=== PATIENT | male | born 1960 | race Caucasian/White ===

== ENCOUNTER 2016-12-01 17:51 | Emergency (ER) | payer SELFPAY ==
[~2016-12-01] VITALS: Ht 177.8 cm; Wt 74.8 kg
[~2016-12-01 17:51] MED LIST: SULF1TAB24 PO
[2016-12-01 18:08] VITALS: BP 132/69
[2016-12-01] MEDS ORDERED: fentaNYL PF VIAL 100 MCG/2 ML VIAL IV ONE (18:30)
[2016-12-01] MEDS ORDERED: ONDANSETRON PF 4 MG/2 ML VIAL. IV ONE (18:30)
--- NOTE | 2016-12-01 18:32 | PHYS DOC ---
Past Medical History Past Medical History: No Pertinent History Past Surgical History: Appendectomy, Other Additional Past Surgical Histo: R rotator cuff Smokin Pack Per Day Alcohol Use: Occasionally Drug Use: None Social History Narrative: reports previous history of cocaine abuse Adult General Chief Complaint Chief Complaint: OTHER COMPLAINTS [facility] Patient is a 56 year old male presents to the emergency department with complaints of pain and swelling in the right groin area. He states it's been present for many months and seems to worsen when he is working or doing any kind of physical labor. He states that it has been more persistent and seems to be swollen. He states it does resolve when he quits doing heavy work and puts pressure on it. Patient states he has no associated nausea, diarrhea. He reports no constipation. He reports no fever. Review of Systems Review of Systems Constitutional: Denies fever or chills [] Eyes: Denies change in visual acuity, redness, or eye pain [] HENT: Denies nasal congestion or sore throat [] Respiratory: Denies cough or shortness of breath [] Cardiovascular: No additional information not addressed in HPI [] GI: Right inguinal pain without nausea, vomiting, diarrhea or bloody stools. : Denies dysuria or hematuria [] Musculoskeletal: Denies back pain or joint pain [] Integument: Denies rash or skin lesions [] Neurologic: Denies headache, focal weakness or sensory changes [] Endocrine: Denies polyuria or polydipsia [] Current Medications Current Medications Current Medications Medications (Trade) Dose Ordered Sig/Shaka Start Time Stop Time Status Last Admin Dose Admin Fentanyl Citrate (Fentanyl 2ml Vial) 50 mcg 1X ONCE 12/01/16 18:30 12/01/16 18:31 DC 12/01/16 19:58 50 MCG Info (Do NOT chart on this entry -- for MONITORING) 1 each PRN DAILY PRN 12/01/16 20:15 12/03/16 20:14 Iohexol (Omnipaque 300 Mg/ml) 75 ml 1X ONCE 12/01/16 20:15 12/01/16 20:16 DC 12/01/16 20:21 75 ML Ondansetron HCl (Zofran) 4 mg 1X ONCE 12/01/16 18:30 12/01/16 18:31 DC 12/01/16 19:57 4 MG Allergies Allergies Allergies Coded Allergies Type Severity Reaction Last Updated Verified No Known Drug Allergies 09/02/13 No Physical Exam Physical Exam Constitutional: Well developed, well nourished, no acute distress, non-toxic appearance. [] HENT: Normocephalic, atraumatic, bilateral external ears normal, oropharynx moist, no oral exudates, nose normal. [] Eyes: PERRLA, EOMI, conjunctiva normal, no discharge. [] Neck: Normal range of motion, no tenderness, supple, no stridor. [] Cardiovascular:Heart rate regular rhythm, no murmur [] Lungs & Thorax: Bilateral breath sounds clear to auscultation [] Abdomen: Bowel sounds normal, soft, slight bulge in the right inguinal area, easily reduced, palpable inguinal hernia : External genitalia within normal limits, testicular exam unremarkable] Skin: Warm, dry, no erythema, no rash. [] Back: No tenderness, no CVA tenderness. [] Extremities: No tenderness, no cyanosis, no clubbing, ROM intact, no edema. [] Neurologic: Alert and oriented X 3, normal motor function, normal sensory function, no focal deficits noted. [] Psychologic: Affect normal, judgement normal, mood normal. [] Current Patient Data Vital Signs Vital Signs Date Time Temp Pulse Resp B/P (MAP) Pulse Ox O2 Delivery O2 Flow Rate FiO2 12/01/16 19:58 16 94 Room Air 12/01/16 18:08 98.4 71 132/69 (90) 98.4 Lab Values Laboratory Tests Test 12/01/16 18:25 12/01/16 19:35 Urine Collection Type Void Urine Color Yellow Urine Clarity Clear Urine pH 6.5 Urine Specific [place] 1.025 Urine Protein Negative mg/dL (NEG-TRACE) Urine Glucose (UA) Negative mg/dL (NEG) Urine Ketones (Stick) Negative mg/dL (NEG) Urine Blood Negative (NEG) Urine Nitrite Negative (NEG) Urine Bilirubin Negative (NEG) Urine Urobilinogen Dipstick 0.2 mg/dL (0.2 mg/dL) Urine Leukocyte Esterase Negative (NEG) Urine RBC 0 /HPF (0-2) Urine WBC 1-4 /HPF (0-4) Urine Squamous Epithelial Cells Few /LPF Urine Amorphous Sediment Present /HPF Urine Bacteria Few /HPF (0-FEW) Urine Mucus Mod /LPF Urine Opiates Screen Pos (NEG) Urine Methadone Screen Neg (NEG) Urine Barbiturates Neg (NEG) Urine Phencyclidine Screen Neg (NEG) Urine Amphetamine/Methamphetamine Neg (NEG) Urine Benzodiazepines Screen Neg (NEG) Urine Cocaine Screen Pos (NEG) Urine Cannabinoids Screen Neg (NEG) Urine Ethyl Alcohol Neg (NEG) White Blood Count 12.6 x10^3/uL (4.0-11.0) H Red Blood Count 4.87 x10^6/uL (4.30-5.70) Hemoglobin 14.2 g/dL (13.0-17.5) Hematocrit 42.0 % (39.0-53.0) Mean Corpuscular Volume 86 fL (79-100) Mean Corpuscular Hemoglobin 29 pg (25-35) Mean Corpuscular Hemoglobin Concent 34 g/dL (31-37) Red Cell Distribution Width 13.6 % (11.5-14.5) Platelet Count 277 x10^3/uL (140-400) Neutrophils (%) (Auto) 72 % (31-73) Lymphocytes (%) (Auto) 15 % (24-48) L Monocytes (%) (Auto) 10 % (0-9) H Eosinophils (%) (Auto) 2 % (0-3) Basophils (%) (Auto) 1 % (0-3) Neutrophils # (Auto) 9.0 x10^3uL (1.8-7.7) H Lymphocytes # (Auto) 1.9 x10^3/uL (1.0-4.8) Monocytes # (Auto) 1.2 x10^3/uL (0.0-1.1) H Eosinophils # (Auto) 0.3 x10^3/uL (0.0-0.7) Basophils # (Auto) 0.1 x10^3/uL (0.0-0.2) Sodium Level 135 mmol/L (136-145) L Potassium Level 4.0 mmol/L (3.5-5.1) Chloride Level 99 mmol/L (98-107) Carbon Dioxide Level 30 mmol/L (21-32) Anion Gap 6 (6-14) Blood Urea Nitrogen 17 mg/dL (8-26) Creatinine 0.7 mg/dL (0.7-1.3) Estimated GFR (Cockcroft-Gault) 116.7 BUN/Creatinine Ratio 24 (6-20) H Glucose Level 81 mg/dL (70-99) Calcium Level 9.2 mg/dL (8.5-10.1) Total Bilirubin 0.6 mg/dL (0.2-1.0) Aspartate Amino Transferase (AST) 28 U/L (15-37) Alanine Aminotransferase (ALT) 44 U/L (16-63) Alkaline Phosphatase 83 U/L (46-116) Total Protein 7.9 g/dL (6.4-8.2) Albumin 3.6 g/dL (3.4-5.0) Albumin/Globulin Ratio 0.8 (1.0-1.7) L Laboratory Tests 12/01/16 19:35 Laboratory Tests 12/01/16 19:35 EKG EKG [] Radiology/Procedures Radiology/Procedures [][facility] [address] [place] [address] IMAGING REPORT Signed PATIENT: ALOK DELEON ACCOUNT: [id number] : 1960 LOCATION: ER AGE: 56 SEX: M EXAM STATUS: REG ER ORD. PHYSICIAN: JESSICA MCKEON APRN REASON: RLQ pain, inguinal hernia PROCEDURE: CT ABD PELV W/ IV CONTRST ONLY CT scan of the abdomen and pelvis with contrast 12/01/2016 CLINICAL HISTORY: Right lower quadrant abdominal pain. TECHNIQUE: After the intravenous administration of 75 cc of Omnipaque 300 only, contiguous, 5 mm axial sections were obtained through the abdomen and pelvis. One or more of the following individualized dose reduction techniques were utilized for this study: 1. Automated exposure control. 2. Adjustment of the mA and/or kV according to patient size. 3. Use of iterative reconstruction technique. FINDINGS: Images through the lung bases demonstrate dependent subsegmental atelectasis involving both lower lobes. A 5 mm calcified granuloma is seen involving the left lower lobe. Right middle lobe atelectasis and/ or infiltrate is noted. The liver, spleen, pancreas, adrenal glands and the right kidney are within normal limits. A 1 to 2 mm nonobstructing calculus is seen involving thelower pole of the left kidney. Moderate atherosclerotic calcification abdominal aorta is seen. The abdominal aorta tapers normally. The gallbladder is well-distended. No free fluid or free air within the abdomen. The bowel is difficult to evaluate without oral contrast material. Mild to small bowel loops are seen within the mid/lower abdomen without definite evidence of bowel obstruction. A small umbilical hernia is seen which contains fat. It measures 1.6 cm in size. The appendix is not visualized. No inflammatory changes are seen surrounding the cecum. Images through the pelvis demonstrate the urinary bladder distended with urine. Calcifications are seen within the pelvis consistent with phleboliths. No free fluid is seen. There is a small fat-containing right inguinal hernia. This measures 2.2 cm diameter. Degenerative changes are seen involving the lower thoracic and throughout the lumbar spine and both hips. IMPRESSION: 1. Small umbilical and right inguinal hernias which contain fat. 2. No acute abnormality is seen. Electronically signed by: Suresh Melara MD (12/01/2016 9:01 PM) [facility] DICTATED and SIGNED BY: SURESH MELARA MD DATE: 12/01/162050 CC: NO PCP; NON,STAFF; JESSICA MCKEON APRN ~ Course & Med Decision Making Course & Med Decision Making Pertinent Labs and Imaging studies reviewed. (See chart for details) []Patient is a 50 mg of fentanyl IV. During the initial interview, he had difficulty maintaining an awake state and had slurred speech. At that time he denied use of alcohol or illicit drugs. His drug screen is positive for opiates and cocaine. Patient's hernias are not incarcerated. He will be discharged home for plan follow-up outpatient surgery. Dragon Disclaimer Dragon Disclaimer This electronic medical record was generated, in whole or in part, using a voice recognition dictation system. Departure Departure Impression: Primary Impression: Inguinal hernia Disposition: HOME, SELF-CARE Condition: STABLE Referrals: NO PCP (PCP) [facility] Patient Instructions: Inguinal Hernia, Adult Scripts Naproxen (NAPROSYN) 500 Mg Tablet 500 MG PO BID Y for PAIN, #20 TAB Prov: JESSICA MCKEON APRN 12/01/16 Problem Qualifiers Primary Impression: Inguinal hernia Obstruction and gangrene presence: without obstruction or gangrene Laterality : unilateral Recurrence: recurrent Qualified Codes: K40.91 - Unilateral inguinal hernia, without obstruction or gangrene, recurrent JESSICA MCKEON [employer] Dec 01, 2016 18:32
[2016-12-01 18:41] LABS: BILIRUBIN,URINE NEGATIVE (NEG); GLUCOSE,URINE NEGATIVE (NEG); NITRITE,URINE NEGATIVE (NEG); PH,URINE 6.5; PROTEIN,URINE NEGATIVE (NEG-TRACE); UROBILINOGEN,URINE 0.2 mg/dL (0.2 mg/dL)
[2016-12-01 18:49] LABS: BACTERIA,URINE FEW /HPF (0-FEW); RBC,URINE 0 /HPF (0-2); SQUAMOUS EPITHELIAL CELL,UR FEW /LPF
[2016-12-01 19:50] LABS: BASO # 0.1 x10^3/uL (0.0-0.2); BASO % 1 % (0-3); EOS % 2 % (0-3); HEMOGLOBIN 14.2 g/dL (13.0-17.5); LYMPH # 1.9 x10^3/uL (1.0-4.8); LYMPH % 15 % (24-48); MEAN CORPUSCULAR HEMOGLOBIN 29 pg (25-35); MEAN CORPUSCULAR HGB CONC 34 g/dL (31-37); MEAN CORPUSCULAR VOLUME 86 fL (79-100); MONO % 10 % (0-9); NEUT % 72 % (31-73); PLATELET COUNT 277 x10^3/uL (140-400); RED BLOOD COUNT 4.87 x10^6/uL (4.30-5.70); RED CELL DISTRIBUTION WIDTH 13.6 % (11.5-14.5); WHITE BLOOD COUNT 12.6 x10^3/uL (4.0-11.0)
[2016-12-01 19:59] LABS: CALCIUM 9.2 mg/dL (8.5-10.1); CREATININE 0.7 mg/dL (0.7-1.3); GFR 116.7
[2016-12-01 20:07] LABS: ALBUMIN 3.6 g/dL (3.4-5.0); ALBUMIN/GLOBULIN RATIO 0.8 (1.0-1.7); TOTAL BILIRUBIN 0.6 mg/dL (0.2-1.0); TOTAL PROTEIN 7.9 g/dL (6.4-8.2)
[2016-12-01 20:15] LABS: BARBITURATES NEG (NEG); BENZODIAZEPINES NEG (NEG); CANNABINOIDS NEG (NEG); COCAINE POS (NEG); METHADONE NEG (NEG); OPIATES POS (NEG); PHENCYCLIDINE NEG (NEG)
[2016-12-01] MEDS ORDERED: CONTRAST GIVEN MC PRN (20:15)
[2016-12-01] MEDS ORDERED: IOHEXOL 300 MG/ML 75 ML VIAL IV ONE (20:15)
--- NOTE | 2016-12-01 21:04 | RAD ---
CT scan of the abdomen and pelvis with contrast 12/01/2016 CLINICAL HISTORY: Right lower quadrant abdominal pain. TECHNIQUE: After the intravenous administration of 75 cc of Omnipaque 300 only, contiguous, 5 mm axial sections were obtained through the abdomen and pelvis. One or more of the following individualized dose reduction techniques were utilized for this study: 1. Automated exposure control. 2. Adjustment of the mA and/or kV according to patient size. 3. Use of iterative reconstruction technique. FINDINGS: Images through the lung bases demonstrate dependent subsegmental atelectasis involving both lower lobes. A 5 mm calcified granuloma is seen involving the left lower lobe. Right middle lobe atelectasis and/ or infiltrate is noted. The liver, spleen, pancreas, adrenal glands and the right kidney are within normal limits. A 1 to 2 mm nonobstructing calculus is seen involving thelower pole of the left kidney. Moderate atherosclerotic calcification abdominal aorta is seen. The abdominal aorta tapers normally. The gallbladder is well-distended. No free fluid or free air within the abdomen. The bowel is difficult to evaluate without oral contrast material. Mild to small bowel loops are seen within the mid/lower abdomen without definite evidence of bowel obstruction. A small umbilical hernia is seen which contains fat. It measures 1.6 cm in size. The appendix is not visualized. No inflammatory changes are seen surrounding the cecum. Images through the pelvis demonstrate the urinary bladder distended with urine. Calcifications are seen within the pelvis consistent with phleboliths. No free fluid is seen. There is a small fat-containing right inguinal hernia. This measures 2.2 cm diameter. Degenerative changes are seen involving the lower thoracic and throughout the lumbar spine and both hips. IMPRESSION: 1. Small umbilical and right inguinal hernias which contain fat. 2. No acute abnormality is seen. Electronically signed by: Suresh Melara MD (12/01/2016 9:01 PM) [facility]
[2016-12-01] MEDS ORDERED: NAPR500T PO (21:11)
== END 2016-12-01 21:20 | disposition home or self-care (01) ==
LOC: ER 17:51
DX: K40.91 Unilateral inguinal hernia, without obstruction or gangrene, recurrent (principal); F17.200 Nicotine dependence, unspecified, uncomplicated; Z90.49 Acquired absence of other specified parts of digestive tract
CPT/HCPCS: 36415; 74177; 80053; 80307; 81001; 85025; 96374; 96375; 99285; J2405; J3010; Q9967; G0479

== ENCOUNTER 2017-04-15 09:03 | Emergency (ER) | payer SELFPAY ==
[2017-04-15] MEDS: IV NORMAL SALINE 1000ML BAG 1,000 ML IV (10:01)
[2017-04-15] MEDS: KETOROLAC 30 MG/ML INJ. IV (10:01)
[2017-04-15 10:27] LABS: ADD MAN DIFF? NO
[2017-04-15 10:33] LABS: BASO % 1 % (0-3); EOS # 0.2 x10^3/uL (0.0-0.7); EOS % 2 % (0-3); HEMATOCRIT 42.3 % (39.0-53.0); HEMOGLOBIN 14.4 g/dL (13.0-17.5); LYMPH # 1.6 x10^3/uL (1.0-4.8); LYMPH % 18 % (24-48); MEAN CORPUSCULAR HEMOGLOBIN 29 pg (25-35); MEAN CORPUSCULAR HGB CONC 34 g/dL (31-37); MEAN CORPUSCULAR VOLUME 85 fL (79-100); MONO # 0.8 x10^3/uL (0.0-1.1); MONO % 9 % (0-9); NEUT # 6.2 x10^3uL (1.8-7.7); NEUT % 71 % (31-73); PLATELET COUNT 266 x10^3/uL (140-400); RED BLOOD COUNT 4.95 x10^6/uL (4.30-5.70); RED CELL DISTRIBUTION WIDTH 13.3 % (11.5-14.5); WHITE BLOOD COUNT 8.8 x10^3/uL (4.0-11.0)
[2017-04-15 10:48] LABS: ANION GAP 7 (6-14); BLOOD UREA NITROGEN 14 mg/dL (8-26); BUN/CREATININE RATIO 20 (6-20); CALCIUM 9.2 mg/dL (8.5-10.1); CARBON DIOXIDE 28 mmol/L (21-32); CHLORIDE 102 mmol/L (98-107); CREATININE 0.7 mg/dL (0.7-1.3); GFR 116.7; GLUCOSE 113 mg/dL (70-99); INR 1.1 (0.8-1.1); POTASSIUM 3.9 mmol/L (3.5-5.1); PROTHROMBIN TIME PATIENT 13.1 SEC (11.7-14.0); SODIUM 137 mmol/L (136-145)
[2017-04-15 10:53] LABS: ALBUMIN 3.4 g/dL (3.4-5.0); ALBUMIN/GLOBULIN RATIO 0.9 (1.0-1.7); ALK PHOS 78 U/L (46-116); ALT (SGPT) 21 U/L (16-63); AST (SGOT) 15 U/L (15-37); LIPASE 54 U/L (73-393); TOTAL BILIRUBIN 0.3 mg/dL (0.2-1.0); TOTAL PROTEIN 7.4 g/dL (6.4-8.2)
[2017-04-15 10:55] LABS: ETHANOL < 10 mg/dL (0-10); TROPONINI < 0.017 ng/mL (0.000-0.055)
[2017-04-15 10:59] LABS: NT-PRO BNP 34 pg/mL (0-124); THYROID STIM HORMONE (TSH) 0.158 uIU/mL (0.358-3.74)
[2017-04-15 10:59] LABS: CKMB MASS 0.8 ng/mL (0.0-3.6); CREATINE KINASE 60 U/L (39-308)
[2017-04-15 11:29] LABS: MYOGLOBIN 43 ng/mL (16-96)
[2017-04-15 11:45] LABS: BILIRUBIN,URINE NEGATIVE (NEG); CLARITY,URINE CLEAR; COLOR,URINE YELLOW; GLUCOSE,URINE NEGATIVE (NEG); NITRITE,URINE NEGATIVE (NEG); PH,URINE 7.5; PROTEIN,URINE NEGATIVE (NEG-TRACE); UROBILINOGEN,URINE 0.2 mg/dL (0.2 mg/dL)
[2017-04-15 11:52] LABS: BARBITURATES NEG (NEG); BENZODIAZEPINES NEG (NEG); CANNABINOIDS NEG (NEG); COCAINE POS (NEG); METHADONE NEG (NEG); OPIATES POS (NEG); PHENCYCLIDINE NEG (NEG)
[2017-04-15 11:54] LABS: AMPHETAMINE/METHAMPHETAMINE NEG (NEG); ETHANOL, URINE NEG (NEG)
[2017-04-15 12:12] LABS: AMORPHOUS SEDIMENT,UR PRESENT /HPF; SQUAMOUS EPITHELIAL CELL,UR FEW /LPF
[2017-04-15 12:13] LABS: BACTERIA,URINE FEW /HPF (0-FEW); RBC,URINE OCC /HPF (0-2); WBC,URINE 0 /HPF (0-4)
[2017-04-15] MEDS ORDERED: IV NORMAL SALINE 1000ML BAG 1,000 ML IV ×2 (12:15)
== END 2017-04-15 12:11 | disposition home or self-care (01) ==
LOC: ER 12:11
DX: F14.10 Cocaine abuse, uncomplicated (principal); F11.10 Opioid abuse, uncomplicated; R25.2 Cramp and spasm; F17.200 Nicotine dependence, unspecified, uncomplicated; Z90.49 Acquired absence of other specified parts of digestive tract
CPT/HCPCS: 36415; 71045; 80053; 80307; 81001; 82553; 83690; 83735; 83874; 83880; 84443; 84484; 85025; 85610; 86140; 93005; 96361; 96374; 96375; 99285-25; G0480; J1885; J2060; J7030

== ENCOUNTER 2017-08-09 07:15 | Emergency (ER) | payer SELFPAY | END 2017-08-09 09:04 | disposition home or self-care (01) | LOC: ER 07:15 | DX: M25.551 Pain in right hip (principal); G89.29 Other chronic pain; F14.10 Cocaine abuse, uncomplicated; F11.10 Opioid abuse, uncomplicated | CPT/HCPCS: 73502; 99284 ==

== ENCOUNTER 2018-07-16 04:06 | Emergency (ER) | payer SELFPAY ==
[~2018-07-16] VITALS: Ht 179.1 cm; Wt 79.4 kg
[~2018-07-16 04:06] MED LIST changes: +NAPR-683 PO
[2018-07-16 04:10] VITALS: BP 136/81
[2018-07-16] MEDS ORDERED: ACET-704 PO (04:33)
[2018-07-16] MEDS ORDERED: CLIN300C8 PO (04:33)
--- NOTE | 2018-07-16 04:34 | PHYS DOC ---
Past Medical History Past Medical History: No Pertinent History Past Surgical History: Appendectomy, Other Additional Past Surgical Histo: R rotator cuff Alcohol Use: Occasionally Drug Use: Cocaine, Heroin Adult General Chief Complaint Chief Complaint: DENTAL PROBLEM HPI HPI Patient is a 57-year-old male who presents with complaint of left lower dental pain that started yesterday and states that this morning he has some swelling to his lower jaw and increase in pain. He rates pain as moderate to severe. He denies any fever. He denies any recent dental injury. Patient states that nothing is improving the pain.[] Review of Systems Review of Systems Constitutional: Denies fever or chills [] HENT: Positive dental pain[] Respiratory: Denies cough or shortness of breath [] Cardiovascular: No additional information not addressed in HPI [] Current Medications Current Medications Current Medications Medications (Trade) Dose Ordered Sig/Shaka Start Time Stop Time Status Last Admin Dose Admin Clindamycin Phosphate (Cleocin Im) 600 mg 1X ONCE 07/16/18 05:00 07/16/18 05:01 Dexamethasone Sodium Phosphate (Decadron) 10 mg 1X ONCE 07/16/18 05:00 07/16/18 05:01 Allergies Allergies Allergies Coded Allergies Type Severity Reaction Last Updated Verified No Known Drug Allergies 09/02/13 No Physical Exam Physical Exam Constitutional: Well developed, well nourished, no acute distress, non-toxic appearance. [] HENT: Normocephalic, atraumatic, dentition demonstrates mild widespread caries. There is swelling about the gum of the left lower lateral incisor and canine with soft tissue swelling around the chin in this region. [] Neck: Normal range of motion, no tenderness, supple, no stridor. [] Cardiovascular:Heart rate regular rhythm, no murmur [] Lungs & Thorax: Bilateral breath sounds clear to auscultation [] Current Patient Data Vital Signs Vital Signs Date Time Temp Pulse Resp B/P (MAP) Pulse Ox O2 Delivery O2 Flow Rate FiO2 07/16/18 04:10 98.2 89 20 136/81 (99) 96 Room Air 98.2 EKG EKG [] Radiology/Procedures Radiology/Procedures [] Course & Med Decision Making Course & Med Decision Making Pertinent Labs and Imaging studies reviewed. (See chart for details) [] Dragon Disclaimer Dragon Disclaimer This electronic medical record was generated, in whole or in part, using a voice recognition dictation system. Departure Departure Impression: Primary Impression: Pain due to dental caries Disposition: 01 HOME, SELF-CARE Condition: STABLE Referrals: NO PCP (PCP) Patient Instructions: Dental Caries, Dental Pain Scripts Clindamycin Hcl (CLINDAMYCIN HCL) 300 Mg Capsule 1 CAP PO QID, #40 CAP Prov: BALDEMAR JORDAN Jr. DO 07/16/18 Acetaminophen With Codeine (TYLENOL WITH CODEINE #3 TABLET) 1 Each Tablet 1 TAB PO PRN Q6HRS PRN for PAIN, #12 TAB Prov: BALDEMAR JORDAN Jr. DO 07/16/18 BALDEMAR JORDAN Jr. DO Jul 16, 2018 04:33
[2018-07-16] MEDS ORDERED: CLINDAMYCIN IM 600 MG/4 ML VIAL. IM ONE (05:00)
[2018-07-16] MEDS ORDERED: DEXAMETHASONE SOD PHOS 20 MG/5 ML VIAL. IM ONE (05:00)
[2018-07-16] MEDS ORDERED: HYDROcodone/APAP 7.5/325MG 1 TAB TABLET PO ONE (05:00)
[2018-07-16] MEDS ORDERED: fentaNYL PF VIAL 100 MCG/2 ML VIAL IM ONE (05:30)
== END 2018-07-16 05:12 | disposition home or self-care (01) ==
LOC: ER 04:06
DX: K02.9 Dental caries, unspecified (principal); Z90.89 Acquired absence of other organs
CPT/HCPCS: 96372; 99284; J1100; J3010; J3490

== ENCOUNTER 2018-09-12 06:17 | Emergency (ER) | payer SELFPAY ==
[~2018-09-12 06:17] MED LIST changes: +ACET-704 PO; +CLIN300C8 PO
== END 2018-09-12 08:47 | disposition left against medical advice (07) ==
LOC: ER 06:17
DX: K08.89 Other specified disorders of teeth and supporting structures (principal); Z53.21 Procedure and treatment not carried out due to patient leaving prior to being seen by health care provider